=== PATIENT | male | born 1940 | race Two or more races ===

== ENCOUNTER 2023-06-25 13:58 | Inpatient (IN) | payer MEDICARE ==
[~2023-06-25] VITALS: Ht 175.3 cm; Wt 70.5 kg
[2023-06-25 15:51] LABS: BASOPHILS % (AUTO) 0.8 % (0.0-2.0); EOSINOPHILS % (AUTO) 1.8 % (1.0-6.0); HEMATOCRIT 30.2 % (41-53); HEMOGLOBIN 10.4 g/dL (13.5-17.5); LYMPHOCYTES # (AUTO) 1.3 K/uL (1.0-4.8); LYMPHOCYTES % (AUTO) 16.5 % (22.0-44.0); MEAN CORPUSCULAR HEMOGLOBIN 31.7 pg (26.0-34.0); MEAN CORPUSCULAR HGB CONC 34.4 G/dL (31.0-37.0); MEAN CORPUSCULAR VOLUME 92 fL (80-100); MONOCYTES # (AUTO) 0.6 K/uL (0.1-1.0); MONOCYTES % (AUTO) 8.2 % (2.0-9.0); NEUTROPHILS # (AUTO) 5.7 K/uL (1.8-7.7); NEUTROPHILS % (AUTO) 72.7 % (40.0-70.0); PLATELET COUNT (AUTO) 321 K/uL (150-450); RED BLOOD CELL COUNT(AUTO) 3.28 MIL/uL (4.50-5.90); RED CELL DISTRIBUTION WIDTH 14.9 % (11.5-14.5); WHITE BLOOD COUNT (AUTO) 7.9 K/uL (4.5-11.0)
[2023-06-25] MEDS ORDERED: INSULIN LISPRO 100 UNITS/ML SQ PRN (16:00)
[2023-06-25] MEDS ORDERED: DEXTROSE 50%-WATER 25 GM/50 ML SYRINGE IVP PRN (16:00)
[2023-06-25] MEDS ORDERED: BISACODYL 10 MG RECTAL RECTAL SUPPOSITORY PR PRN (16:00)
[2023-06-25] MEDS ORDERED: ACETAMINOPHEN 325 MG TABLET PO PRN (16:00)
[2023-06-25] MEDS ORDERED: ONDANSETRON HCL 4 MG/2 ML VIAL IVP PRN (16:00)
[2023-06-25 16:01] LABS: CALCIUM, TOTAL 9.1 mg/dL (8.8-10.5); CREATININE 1.41 mg/dL (0.60-1.30); POTASSIUM 4.8 mmol/L (3.5-5.1); PROTHROMBIN TIME 10.5 SEC (9.4-11.6)
[2023-06-25 16:07] LABS: ALBUMIN 2.9 g/dL (3.4-5.0); BILIRUBIN,TOTAL 0.2 mg/dL (0.1-1.0); TOTAL PROTEIN, SERUM 7.3 g/dL (6.4-8.2)
[2023-06-25] MEDS ORDERED: GADOTERATE MEGLUMINE 10 MMOL/20 ML VIAL IVP ONE (16:10)
[2023-06-25] MEDS: MORPHINE SULFATE 2 MG/ML SYRINGE IVP PRN (16:15)
[2023-06-25 17:10] LABS: COVID AG,FIA SOURCE NASAL SWAB
[2023-06-25 17:52] LABS: SARS-COV2 (COVID) ANTIGEN,FIA Negative (Negative)
[2023-06-25 18:12] VITALS: BP 120/58; PULSE 58; RESP 20; TEMP 97.6
[2023-06-25 18:17] LABS: GLUCOMETER DEV NAME(LOC) 6N.2B; GLUCOSE,POINT OF CARE 129 MG/DL (70-110)
[2023-06-25] MEDS ORDERED: INFLUENZA VIRUS VACCINE QVS 2023-24 (6MO+)/PF 60 MCG/0.5 ML SYRINGE IM. ONE (20:00)
[2023-06-25] MEDS: OxyCODONE HCL/ACETAMINOPHEN 5-325 MG TABLET PO PRN (20:13)
[2023-06-25] MEDS: DOCUSATE SODIUM 100 MG CAPSULE PO SCH (20:15)
[2023-06-25 20:49] VITALS: BP 105/47; PULSE 54; RESP 18; TEMP 97.4
[2023-06-25 20:51] LABS: GLUCOMETER DEV NAME(LOC) 6N.1B; GLUCOSE,POINT OF CARE 133 MG/DL (70-110)
[2023-06-25] MEDS ORDERED: SODIUM CHLORIDE 0.9% 1,000 ML IV ONE (21:45)
[2023-06-26] MEDS: OxyCODONE HCL/ACETAMINOPHEN 5-325 MG TABLET PO PRN (04:24)
[2023-06-26 05:15] VITALS: BP 102/44; PULSE 57; RESP 18; TEMP 97.8
[2023-06-26] MEDS: FAMOTIDINE 20 MG TABLET PO SCH (08:09)
[2023-06-26] MEDS: DOCUSATE SODIUM 100 MG CAPSULE PO SCH ×2 (08:09→21:26)
[2023-06-26 09:31] VITALS: BP 117/59; PULSE 54; RESP 20; TEMP 98.4
[2023-06-26] MEDS ORDERED: SODIUM CL IRRIG SOLN BAG 3,000 ML IRRIG ONE (12:26)
[2023-06-26] MEDS ORDERED: VANCOMYCIN HCL 1 GM/VIAL ONE (12:26)
[2023-06-26 12:27] LABS: GLUCOMETER DEV NAME(LOC) 6N.2B; GLUCOSE,POINT OF CARE 169 MG/DL (70-110)
[2023-06-26 12:27] LABS: GLUCOMETER DEV NAME(LOC) 6S.2; GLUCOSE,POINT OF CARE 78 MG/DL (70-110)
[2023-06-26] MEDS ORDERED: LIDOCAINE/PF 1% 30 ML VIAL ONE (12:27)
[2023-06-26] MEDS ORDERED: BUPIVACAINE HCL/PF 0.25% 30 ML VIAL ONE (12:27)
[2023-06-26] MEDS ORDERED: CeFAZolin 2 GM/DEXTROSE 50 ML IV ONE (12:39)
[2023-06-26] MEDS ORDERED: SODIUM CHLORIDE 0.9% 1,000 ML IV ONE (13:00)
[2023-06-26] MEDS ORDERED: HYDROmorphone HCL 2 MG/ML SYRINGE IVP PRN (13:45)
[2023-06-26] MEDS ORDERED: MEPERIDINE-PF 25 MG/ML VIAL IVP PRN (13:45)
[2023-06-26] MEDS ORDERED: FentaNYL CITRATE PF 100 MCG/2 ML VIAL IVP PRN (13:45)
[2023-06-26] MEDS: MORPHINE SULFATE 2 MG/ML SYRINGE IVP PRN (16:14)
[2023-06-26 16:29] VITALS: BP 125/59; PULSE 69; RESP 19; TEMP 97.5
[2023-06-26 18:41] VITALS: BP 112/46; PULSE 65; RESP 18; TEMP 98.1
[2023-06-26] MEDS: HYDROmorphone HCL 2 MG/ML SYRINGE IVP PRN (19:58)
[2023-06-26] MEDS: ACETAMINOPHEN 1000 MG/ISO-OSM 100 ML IV SCH (20:05)
[2023-06-26 20:26] LABS: GLUCOMETER DEV NAME(LOC) 6N.2B; GLUCOSE,POINT OF CARE 120 MG/DL (70-110)
[2023-06-26 20:34] VITALS: BP 133/78; PULSE 71; RESP 20; TEMP 98.5
[2023-06-26] MEDS: CYCLOBENZAPRINE HCL 10 MG TABLET PO SCH (21:30)
[2023-06-26 22:55] LABS: GLUCOMETER DEV NAME(LOC) 6S.2; GLUCOSE,POINT OF CARE 110 MG/DL (70-110)
[2023-06-27] MEDS: HYDROmorphone HCL 2 MG/ML SYRINGE IVP PRN ×2 (01:28→16:39)
[2023-06-27] MEDS: ACETAMINOPHEN 1000 MG/ISO-OSM 100 ML IV SCH ×2 (02:25→08:21)
[2023-06-27] MEDS ORDERED: PROPOFOL 1% ISO-OSM 1000 MG/100 ML BOTTLE IV ONE (02:51)
[2023-06-27] MEDS ORDERED: FentaNYL CITRATE PF 100 MCG/2 ML VIAL IVP ONE (02:51)
[2023-06-27 04:03] VITALS: BP 121/65; PULSE 66; RESP 18; TEMP 97.8
[2023-06-27] MEDS: OxyCODONE HCL 5 MG IR TABLET PO PRN (06:53)
[2023-06-27 07:31] LABS: GLUCOMETER DEV NAME(LOC) 6S.2; GLUCOSE,POINT OF CARE 80 MG/DL (70-110)
[2023-06-27] MEDS: CYCLOBENZAPRINE HCL 10 MG TABLET PO SCH ×3 (08:21→23:40)
[2023-06-27] MEDS: DOCUSATE SODIUM 100 MG CAPSULE PO SCH ×2 (08:21→21:45)
[2023-06-27] MEDS: FAMOTIDINE 20 MG TABLET PO SCH (08:21)
[2023-06-27] MEDS: OXYGEN THERAPY IH SCH ×2 (08:28→20:00)
[2023-06-27 08:48] VITALS: BP 137/72; PULSE 85; RESP 18; TEMP 98.2
[2023-06-27] MEDS ORDERED: VANCOMYCIN 1GM/WATER(PEG/NADA) 200 ML IV ONE (14:00)
[2023-06-27 16:42] VITALS: BP 119/53; PULSE 80; RESP 18; TEMP 98.3
[2023-06-27 20:28] VITALS: BP 129/62; PULSE 86; RESP 18; TEMP 99.1
[2023-06-28] MEDS: HYDROmorphone HCL 2 MG/ML SYRINGE IVP PRN (00:32)
[2023-06-28 03:27] LABS: GLUCOMETER DEV NAME(LOC) 4E.2; GLUCOSE,POINT OF CARE 125 MG/DL (70-110)
[2023-06-28 03:27] LABS: GLUCOMETER DEV NAME(LOC) 6S.2; GLUCOSE,POINT OF CARE 108 MG/DL (70-110)
[2023-06-28 03:27] LABS: GLUCOMETER DEV NAME(LOC) 6S.2; GLUCOSE,POINT OF CARE 111 MG/DL (70-110)
[2023-06-28 05:11] VITALS: BP 121/66; PULSE 82; RESP 18; TEMP 98.8
[2023-06-28 07:15] LABS: ANION GAP 4 mmol/L (8-16); CALCIUM, TOTAL 8.7 mg/dL (8.8-10.5); CARBON DIOXIDE 29 mmol/L (22-29); CHLORIDE 102 mmol/L (98-107); CREATININE 0.88 mg/dL (0.60-1.30); GLOMERULAR FILTR. RATE CALC > 60 mL/min (>60); GLUCOSE,RANDOM 98 mg/dL (70-110); POTASSIUM 5.4 mmol/L (3.5-5.1); SODIUM SERUM 135 mmol/L (136-145); UREA NITROGEN, BLOOD 9 mg/dL (7-18)
[2023-06-28] MEDS ORDERED: VANCOMYCIN 1GM/WATER(PEG/NADA) 200 ML IV SCH (08:00)
[2023-06-28] MEDS: OXYGEN THERAPY IH SCH ×2 (08:00→20:00)
[2023-06-28] MEDS: DOCUSATE SODIUM 100 MG CAPSULE PO SCH ×2 (08:24→22:58)
[2023-06-28] MEDS: VANCOMYCIN HCL 500 MG in DEXTROSE 5%-WATER 100 ML IV SCH ×2 (08:25→22:58)
[2023-06-28] MEDS: CYCLOBENZAPRINE HCL 10 MG TABLET PO SCH ×3 (08:25→22:58)
[2023-06-28 09:10] LABS: BASOPHILS % (AUTO) 0.8 % (0.0-2.0); EOSINOPHILS % (AUTO) 2.1 % (1.0-6.0); HEMOGLOBIN 9.2 g/dL (13.5-17.5); LYMPHOCYTES # (AUTO) 1.4 K/uL (1.0-4.8); MEAN CORPUSCULAR HEMOGLOBIN 31.8 pg (26.0-34.0); MEAN CORPUSCULAR HGB CONC 34.2 G/dL (31.0-37.0); MEAN CORPUSCULAR VOLUME 93 fL (80-100); MONOCYTES # (AUTO) 0.8 K/uL (0.1-1.0); MONOCYTES % (AUTO) 10.2 % (2.0-9.0); NEUTROPHILS # (AUTO) 5.3 K/uL (1.8-7.7); NEUTROPHILS % (AUTO) 68.9 % (40.0-70.0); PLATELET COUNT (AUTO) 251 K/uL (150-450); RED CELL DISTRIBUTION WIDTH 14.7 % (11.5-14.5); WHITE BLOOD COUNT (AUTO) 7.6 K/uL (4.5-11.0)
[2023-06-28 09:23] VITALS: BP 120/76; PULSE 79; RESP 18; TEMP 98.1
[2023-06-28] MEDS: FAMOTIDINE 20 MG TABLET PO SCH (10:22)
[2023-06-28 15:53] VITALS: BP 114/54; PULSE 70; RESP 18; TEMP 97.9
[2023-06-28 17:01] LABS: GLUCOMETER DEV NAME(LOC) 4E.2; GLUCOSE,POINT OF CARE 83 MG/DL (70-110)
[2023-06-28 18:46] LABS: GLUCOMETER DEV NAME(LOC) 6N.2B; GLUCOSE,POINT OF CARE 115 MG/DL (70-110)
[2023-06-28 18:46] LABS: GLUCOMETER DEV NAME(LOC) 6N.2B; GLUCOSE,POINT OF CARE 98 MG/DL (70-110)
[2023-06-28 20:27] VITALS: BP 127/71; PULSE 75; RESP 18; TEMP 98.1
[2023-06-29] MEDS: OxyCODONE HCL 5 MG IR TABLET PO PRN ×3 (02:13→20:50)
[2023-06-29 02:41] LABS: GLUCOMETER DEV NAME(LOC) 4E.2; GLUCOSE,POINT OF CARE 99 MG/DL (70-110)
[2023-06-29 04:45] VITALS: BP 125/73; PULSE 77; RESP 20; TEMP 98.1
[2023-06-29 07:13] LABS: ANION GAP 5 mmol/L (8-16); CALCIUM, TOTAL 8.8 mg/dL (8.8-10.5); CARBON DIOXIDE 29 mmol/L (22-29); CHLORIDE 103 mmol/L (98-107); CREATININE 0.87 mg/dL (0.60-1.30); GLOMERULAR FILTR. RATE CALC > 60 mL/min (>60); GLUCOSE,RANDOM 91 mg/dL (70-110); POTASSIUM 4.8 mmol/L (3.5-5.1); SODIUM SERUM 137 mmol/L (136-145); UREA NITROGEN, BLOOD 10 mg/dL (7-18); VANCOMYCIN,RANDOM 9.7 mcg/mL (25.0-50.0)
[2023-06-29 07:26] LABS: GLUCOMETER DEV NAME(LOC) 4E.2; GLUCOSE,POINT OF CARE 78 MG/DL (70-110)
[2023-06-29] MEDS: DOCUSATE SODIUM 100 MG CAPSULE PO SCH ×2 (07:49→20:40)
[2023-06-29] MEDS: FAMOTIDINE 20 MG TABLET PO SCH (07:49)
[2023-06-29] MEDS: OXYGEN THERAPY IH SCH ×2 (08:00→20:00)
[2023-06-29] MEDS ORDERED: VANCOMYCIN 1GM/WATER(PEG/NADA) 200 ML IV ONE (08:00)
[2023-06-29 08:08] VITALS: BP 133/65; PULSE 77; RESP 18; TEMP 97.3
[2023-06-29] MEDS: CYCLOBENZAPRINE HCL 10 MG TABLET PO SCH ×3 (08:12→23:15)
[2023-06-29] MEDS ORDERED: AMOX1TAB15 PO (10:57)
[2023-06-29 15:42] VITALS: BP 133/65; PULSE 77; RESP 18; TEMP 97.3
[2023-06-29 18:02] LABS: GLUCOMETER DEV NAME(LOC) 6N.2B; GLUCOSE,POINT OF CARE 122 MG/DL (70-110)
[2023-06-29 18:02] LABS: GLUCOMETER DEV NAME(LOC) 4E.2; GLUCOSE,POINT OF CARE 101 MG/DL (70-110)
[2023-06-29 19:58] VITALS: BP 128/67; PULSE 90; RESP 18; TEMP 98.5
[2023-06-29] MEDS: VANCOMYCIN HCL 750 MG in DEXTROSE 5%-WATER 250 ML IV SCH (20:43)
[2023-06-30 00:06] LABS: GLUCOMETER DEV NAME(LOC) 4E.2; GLUCOSE,POINT OF CARE 135 MG/DL (70-110)
[2023-06-30 04:34] VITALS: BP 139/74; PULSE 93; RESP 18; TEMP 98.4
[2023-06-30 07:31] LABS: GLUCOMETER DEV NAME(LOC) 6N.2B; GLUCOSE,POINT OF CARE 85 MG/DL (70-110)
[2023-06-30 07:36] LABS: ANION GAP 6 mmol/L (8-16); CARBON DIOXIDE 29 mmol/L (22-29); CHLORIDE 100 mmol/L (98-107); CREATININE 0.95 mg/dL (0.60-1.30); GLOMERULAR FILTR. RATE CALC > 60 mL/min (>60); GLUCOSE,RANDOM 104 mg/dL (70-110); SODIUM SERUM 135 mmol/L (136-145); UREA NITROGEN, BLOOD 12 mg/dL (7-18)
[2023-06-30] MEDS: OXYGEN THERAPY IH SCH ×2 (08:00→20:00)
[2023-06-30 08:10] VITALS: BP 134/70; PULSE 88; RESP 19; TEMP 98.5
[2023-06-30] MEDS: VANCOMYCIN HCL 750 MG in DEXTROSE 5%-WATER 250 ML IV SCH ×2 (09:08→20:05)
[2023-06-30] MEDS: DOCUSATE SODIUM 100 MG CAPSULE PO SCH ×2 (09:08→20:05)
[2023-06-30] MEDS: CYCLOBENZAPRINE HCL 10 MG TABLET PO SCH ×3 (09:08→23:26)
[2023-06-30] MEDS: FAMOTIDINE 20 MG TABLET PO SCH (09:08)
[2023-06-30 11:20] VITALS: BP 133/68; PULSE 87; RESP 17; TEMP 98.5
[2023-06-30 11:56] LABS: GLUCOMETER DEV NAME(LOC) 6S.2; GLUCOSE,POINT OF CARE 93 MG/DL (70-110)
[2023-06-30 15:49] VITALS: BP 128/66; PULSE 82; RESP 19; TEMP 98.6
[2023-06-30] MEDS ORDERED: SODIUM CHLORIDE 0.9% 1,000 ML IV ONE (16:00)
[2023-06-30 18:12] LABS: GLUCOMETER DEV NAME(LOC) 4E.2; GLUCOSE,POINT OF CARE 122 MG/DL (70-110)
[2023-06-30 18:23] LABS: EOSINOPHILS % (AUTO) 1.8 % (1.0-6.0); HEMATOCRIT 26.5 % (41-53); LYMPHOCYTES # (AUTO) 0.9 K/uL (1.0-4.8); LYMPHOCYTES % (AUTO) 13.7 % (22.0-44.0); MEAN CORPUSCULAR HEMOGLOBIN 31.3 pg (26.0-34.0); MEAN CORPUSCULAR HGB CONC 33.8 G/dL (31.0-37.0); MEAN CORPUSCULAR VOLUME 93 fL (80-100); MONOCYTES # (AUTO) 0.6 K/uL (0.1-1.0); MONOCYTES % (AUTO) 9.5 % (2.0-9.0); NEUTROPHILS # (AUTO) 4.9 K/uL (1.8-7.7); PLATELET COUNT (AUTO) 296 K/uL (150-450); RED BLOOD CELL COUNT(AUTO) 2.87 MIL/uL (4.50-5.90); WHITE BLOOD COUNT (AUTO) 6.6 K/uL (4.5-11.0)
[2023-06-30 19:54] VITALS: BP 136/73; PULSE 86; RESP 20; TEMP 98.1
[2023-06-30 22:16] LABS: GLUCOMETER DEV NAME(LOC) 6S.2; GLUCOSE,POINT OF CARE 130 MG/DL (70-110)
[2023-07-01 03:45] VITALS: BP 156/68; PULSE 114; RESP 18; TEMP 97.9
[2023-07-01] MEDS ORDERED: HALOPERIDOL LACTATE 5 MG/ML VIAL IM ONE (04:00)
[2023-07-01 04:45] VITALS: BP 156/68; RESP 18; O2SAT 98
[2023-07-01 06:41] LABS: GLUCOMETER DEV NAME(LOC) 4E.2; GLUCOSE,POINT OF CARE 97 MG/DL (70-110)
[2023-07-01] MEDS ORDERED: LORazepam 2 MG/ML VIAL IVP ONE (07:45)
[2023-07-01] MEDS ORDERED: LORazepam 2 MG/ML VIAL ONE (07:48)
[2023-07-01] MEDS: CYCLOBENZAPRINE HCL 10 MG TABLET PO SCH ×2 (08:07→16:33)
[2023-07-01] MEDS: VANCOMYCIN HCL 750 MG in DEXTROSE 5%-WATER 250 ML IV SCH ×2 (08:07→20:31)
[2023-07-01] MEDS: DOCUSATE SODIUM 100 MG CAPSULE PO SCH ×2 (08:08→20:31)
[2023-07-01] MEDS: FAMOTIDINE 20 MG TABLET PO SCH (09:00)
[2023-07-01 09:36] VITALS: BP 123/70; PULSE 90; RESP 19; TEMP 98.1
[2023-07-01 12:54] LABS: ANION GAP 3 mmol/L (8-16); CALCIUM, TOTAL 8.6 mg/dL (8.8-10.5); CARBON DIOXIDE 30 mmol/L (22-29); CHLORIDE 103 mmol/L (98-107); CREATININE 0.91 mg/dL (0.60-1.30); GLOMERULAR FILTR. RATE CALC > 60 mL/min (>60); GLUCOSE,RANDOM 136 mg/dL (70-110); POTASSIUM 4.3 mmol/L (3.5-5.1); SODIUM SERUM 136 mmol/L (136-145); UREA NITROGEN, BLOOD 10 mg/dL (7-18); VANCOMYCIN,RANDOM 34.4 mcg/mL (25.0-50.0)
[2023-07-01 19:18] VITALS: BP 113/66; PULSE 74; RESP 18; TEMP 98.2
[2023-07-01 19:30] VITALS: BP 113/66; PULSE 74; RESP 18; TEMP 98.2; O2SAT 99
[2023-07-01] MEDS: OXYGEN THERAPY IH SCH (20:00)
[2023-07-01 21:26] LABS: GLUCOMETER DEV NAME(LOC) 6S.2; GLUCOSE,POINT OF CARE 100 MG/DL (70-110)
[2023-07-01 21:26] LABS: GLUCOMETER DEV NAME(LOC) 6S.2; GLUCOSE,POINT OF CARE 124 MG/DL (70-110)
[2023-07-01 23:06] LABS: GLUCOMETER DEV NAME(LOC) 6N.2B; GLUCOSE,POINT OF CARE 116 MG/DL (70-110)
[2023-07-02 04:56] VITALS: BP 125/75; PULSE 89; RESP 18; TEMP 98.4
[2023-07-02 07:16] LABS: GLUCOMETER DEV NAME(LOC) 6S.2; GLUCOSE,POINT OF CARE 58 MG/DL (70-110)
[2023-07-02 07:16] LABS: GLUCOMETER DEV NAME(LOC) 6S.2; GLUCOSE,POINT OF CARE 86 MG/DL (70-110)
[2023-07-02 07:30] LABS: ANION GAP 6 mmol/L (8-16); CALCIUM, TOTAL 8.9 mg/dL (8.8-10.5); CARBON DIOXIDE 27 mmol/L (22-29); CHLORIDE 103 mmol/L (98-107); CREATININE 0.91 mg/dL (0.60-1.30); GLOMERULAR FILTR. RATE CALC > 60 mL/min (>60); GLUCOSE,RANDOM 91 mg/dL (70-110); POTASSIUM 5.4 mmol/L (3.5-5.1); SODIUM SERUM 136 mmol/L (136-145); UREA NITROGEN, BLOOD 11 mg/dL (7-18)
[2023-07-02] MEDS: OXYGEN THERAPY IH SCH (08:00)
[2023-07-02 08:02] VITALS: BP 118/68; PULSE 84; RESP 19; TEMP 98.5
[2023-07-02] MEDS: VANCOMYCIN HCL 750 MG in DEXTROSE 5%-WATER 250 ML IV SCH (08:05)
[2023-07-02] MEDS: FAMOTIDINE 20 MG TABLET PO SCH (08:20)
[2023-07-02] MEDS: DOCUSATE SODIUM 100 MG CAPSULE PO SCH (08:20)
[2023-07-02] MEDS: CYCLOBENZAPRINE HCL 10 MG TABLET PO SCH ×2 (08:21)
== END 2023-07-02 12:00 | disposition home health service (06) | DRG 617 ==
LOC: EMS 14:00 → 6N 17:12 → 6S 17:51
PROVIDERS: ADMIT Internal Medicine; ATTEND Internal Medicine
PROC: 0JBR0ZZ Excision of Left Foot Subcutaneous Tissue and Fascia, Open Approach (ICD-10-PCS; 2023-06-26)
PROC: 0Y6U0Z0 Detachment at Left 3rd Toe, Complete, Open Approach (ICD-10-PCS; principal; 2023-06-26 13:30)
DX: E11.621 Type 2 diabetes mellitus with foot ulcer (principal); F23 Brief psychotic disorder; L97.529 Non-pressure chronic ulcer of other part of left foot with unspecified severity; E11.40 Type 2 diabetes mellitus with diabetic neuropathy, unspecified; E11.51 Type 2 diabetes mellitus with diabetic peripheral angiopathy without gangrene; T50.905A Adverse effect of unspecified drugs, medicaments and biological substances, initial encounter; Y92.238 Other place in hospital as the place of occurrence of the external cause; L08.9 Local infection of the skin and subcutaneous tissue, unspecified; I10 Essential (primary) hypertension; M85.88 Other specified disorders of bone density and structure, other site; R41.0 Disorientation, unspecified; Z83.3 Family history of diabetes mellitus; Z79.4 Long term (current) use of insulin; Z86.718 Personal history of other venous thrombosis and embolism
CPT/HCPCS: 73521; 73720; 80048; 80053; 80202; 82962; 85025; 85610; 85651; 85730; 86140; 87040; 88307; 90686; 93005; 97110; 97116; 97162; 97530; 99285; G0238; J0131; J0690; J1170; J1630; J2060; J2270; J2405; J2704; J3010; J3370; J3490; J7030; J7060; Q9967

== ENCOUNTER 2024-06-07 11:36 | Inpatient (IN) | payer MEDICARE, MEDICAID ==
[~2024-06-07] VITALS: Ht 175.3 cm; Wt 80.0 kg
[~2024-06-07 11:36] MED LIST: AMOX1TAB15 PO
[2024-06-07] MEDS ORDERED: METO50 PO (11:58)
[2024-06-07] MEDS ORDERED: ATOR40TA28 PO (11:58)
[2024-06-07] MEDS ORDERED: GABA-1216 PO (11:58)
[2024-06-07] MEDS ORDERED: BUME1TAB50 PO (11:58)
[2024-06-07] MEDS ORDERED: SPIR-37 PO (11:58)
[2024-06-07] MEDS ORDERED: LISI-892 PO (11:58)
[2024-06-07] MEDS ORDERED: APIX5TAB PO (11:58)
[2024-06-07] MEDS ORDERED: AMIO200T68 PO (11:58)
[2024-06-07] MEDS: DOXYCYCLINE HYCLATE 100 MG TABLET PO ONE (13:40)
[2024-06-07] MEDS ORDERED: DOXY-354 PO (15:27)
[2024-06-07] MEDS ORDERED: 0.9% SODIUM CHLORIDE 10 ML SYRINGE IVP PRN (16:45)
[2024-06-07 17:11] LABS: BASOPHILS % (AUTO) 0.3 % (0.0-2.0); EOSINOPHILS % (AUTO) 0.1 % (1.0-6.0); HEMOGLOBIN 9.4 g/dL (13.5-17.5); LYMPHOCYTES % (AUTO) 6.4 % (22.0-44.0); MEAN CORPUSCULAR HEMOGLOBIN 30.4 pg (26.0-34.0); MEAN CORPUSCULAR HGB CONC 32.5 G/dL (31.0-37.0); MEAN CORPUSCULAR VOLUME 94 fL (80-100); MONOCYTES # (AUTO) 1.3 K/uL (0.1-1.0); MONOCYTES % (AUTO) 8.3 % (2.0-9.0); NEUTROPHILS # (AUTO) 12.9 K/uL (1.8-7.7); NEUTROPHILS % (AUTO) 84.9 % (40.0-70.0); PLATELET COUNT (AUTO) 247 K/uL (150-450); RED BLOOD CELL COUNT(AUTO) 3.09 MIL/uL (4.50-5.90); RED CELL DISTRIBUTION WIDTH 14.9 % (11.5-14.5); WHITE BLOOD COUNT (AUTO) 15.2 K/uL (4.5-11.0)
[2024-06-07] MEDS: SODIUM CHLORIDE 0.9% 1,450 ML IV ONE (17:16)
[2024-06-07] MEDS: VANCOMYCIN 1GM/WATER(PEG/NADA) 200 ML IV ONE (17:17)
[2024-06-07 17:18] LABS: APPEARANCE,URINE CLEAR (CLEAR); BILIRUBIN,URINE NEGATIVE (NEGATIVE); COLOR,URINE LIGHT YELLOW (YELLOW); GLUCOSE, URINE (UA) NEGATIVE (NEGATIVE); KETONES,URINE NEGATIVE (NEGATIVE); LEUKOCYTE ESTERASE ,URINE NEGATIVE (NEGATIVE); NITRATE,URINE NEGATIVE (NEGATIVE); OCCULT BLOOD,URINE NEGATIVE (NEGATIVE); PH,URINE 5.5 (5.0-8.0); PROTEIN,URINE TRACE mg/dL (NEGATIVE); SPECIFIC GRAVITIY, URINE 1.016 (1.003-1.030); UROBILINOGEN,URINE <=1.0 mg/dL (<=1.0)
[2024-06-07 17:20] LABS: PROTHROMBIN TIME 12.2 SEC (9.4-11.6)
[2024-06-07 17:21] LABS: ANION GAP 11 mmol/L (8-16); CARBON DIOXIDE 24 mmol/L (22-29); CHLORIDE 103 mmol/L (98-107); CREATININE 2.04 mg/dL (0.60-1.30); GLOMERULAR FILTR. RATE CALC 31 mL/min (>60); GLUCOSE,RANDOM 130 mg/dL (70-110); POTASSIUM 4.5 mmol/L (3.5-5.1); SODIUM SERUM 138 mmol/L (136-145); UREA NITROGEN, BLOOD 42 mg/dL (7-18)
[2024-06-07 17:26] LABS: ALANINE AMINOTRANSFERASE 24 U/L (12-78); ALBUMIN 3.1 g/dL (3.4-5.0); ALKALINE PHOSPHATASE 77 U/L (46-116); ASPARTATE AMINOTRANSFERASE 25 U/L (15-37); BILIRUBIN,TOTAL 0.8 mg/dL (0.1-1.0); TOTAL PROTEIN, SERUM 7.3 g/dL (6.4-8.2)
[2024-06-07 17:28] LABS: LACTIC ACID 1.7 mmol/L (0.4-2.0)
[2024-06-07] MEDS ORDERED: IPRATROPIUM BROMIDE 0.5 MG/2.5 ML NEB SOLUTION NEB PRN (20:00)
[2024-06-07] MEDS ORDERED: ZOLPIDEM TARTRATE 5 MG TABLET PO PRN (20:00)
[2024-06-07] MEDS ORDERED: BISACODYL 10 MG RECTAL RECTAL SUPPOSITORY PR PRN (20:00)
[2024-06-07] MEDS ORDERED: ALBUTEROL SULFATE 2.5 MG/0.5 ML NEB SOLUTION NEB PRN (20:00)
[2024-06-07] MEDS ORDERED: ONDANSETRON HCL 4 MG/2 ML VIAL IVP PRN (20:00)
[2024-06-07] MEDS: AMIODARONE HCL 200 MG TABLET PO SCH (21:18)
[2024-06-07] MEDS: PIPERACILLIN/TAZO 3.375 GM/D5W 50 ML IV ONE (21:18)
[2024-06-07] MEDS: APIXABAN 5 MG TABLET PO SCH (21:18)
[2024-06-07] MEDS: GABAPENTIN 100 MG CAPSULE PO SCH (21:18)
[2024-06-07 23:58] VITALS: BP 116/55; PULSE 88; RESP 18; TEMP 101.2; O2SAT 95
[2024-06-08] MEDS ORDERED: HEPARIN SODIUM,PORCINE 5,000 UNITS/ML VIAL SQ SCH
[2024-06-08] MEDS: ACETAMINOPHEN 325 MG TABLET PO PRN (00:33)
[2024-06-08] MEDS ORDERED: HYDROCODONE/ACETAMINOPHEN 5-325 MG TABLET PO PRN (01:00)
[2024-06-08] MEDS ORDERED: MORPHINE SULFATE 2 MG/ML SYRINGE IVP PRN (01:15)
[2024-06-08] MEDS: PIPERACILLIN SODIUM/TAZOBACTAM 2.25 GM in DEXTROSE 5%-WATER 50 ML IV SCH (04:29)
[2024-06-08 05:18] VITALS: BP 105/48; PULSE 71; RESP 18; TEMP 98.2; O2SAT 94
[2024-06-08] MEDS ORDERED: VANCOMYCIN HCL 1 GM VIAL ONE (06:43)
[2024-06-08] MEDS ORDERED: MUPIROCIN CALCIUM 2% 22 GM OINTMENT ONE (06:43)
[2024-06-08] MEDS ORDERED: RINGERS SOLUTION,LACTATED 1,000 ML IV ONE (06:43)
[2024-06-08] MEDS: ETHYL ALCOHOL 62% ANTISEPTIC NASAL SANITIZER 0.6 ML AMPUL NASAL ONE (06:54)
[2024-06-08] MEDS: SODIUM CHLORIDE 0.9% 1,000 ML IV ONE (06:56)
[2024-06-08 06:59] LABS: BASOPHILS % (AUTO) 0.5 % (0.0-2.0); EOSINOPHILS % (AUTO) 0 % (1.0-6.0); HEMATOCRIT 27.4 % (41-53); HEMOGLOBIN 9.2 g/dL (13.5-17.5); LYMPHOCYTES % (AUTO) 7.3 % (22.0-44.0); MEAN CORPUSCULAR HEMOGLOBIN 31.7 pg (26.0-34.0); MEAN CORPUSCULAR HGB CONC 33.6 G/dL (31.0-37.0); MEAN CORPUSCULAR VOLUME 94 fL (80-100); MONOCYTES % (AUTO) 7.5 % (2.0-9.0); NEUTROPHILS % (AUTO) 84.7 % (40.0-70.0); PLATELET COUNT (AUTO) 188 K/uL (150-450); RED BLOOD CELL COUNT(AUTO) 2.91 MIL/uL (4.50-5.90); RED CELL DISTRIBUTION WIDTH 15.4 % (11.5-14.5)
[2024-06-08 07:07] LABS: CALCIUM, TOTAL 8.6 mg/dL (8.8-10.5); CREATININE 1.91 mg/dL (0.60-1.30); POTASSIUM 4.4 mmol/L (3.5-5.1); VANCOMYCIN,RANDOM 7.9 mcg/mL (25.0-50.0)
[2024-06-08] MEDS ORDERED: SODIUM CL IRRIG SOLN BAG 0 ML IRRIG ONE (07:11)
[2024-06-08] MEDS: LIDOCAINE/PF 1% 30 ML VIAL ONE (07:40)
[2024-06-08] MEDS: BUPIVACAINE HCL/PF 0.25% 30 ML VIAL ONE (07:40)
[2024-06-08] MEDS ORDERED: VANCOMYCIN 750 MG/WATER(PEG) 150 ML IV SCH (08:00)
[2024-06-08] MEDS: VANCOMYCIN 750 MG/WATER(PEG) 150 ML IV SCH (08:28)
[2024-06-08] MEDS ORDERED: FentaNYL CITRATE PF 100 MCG/2 ML VIAL IVP PRN (08:30)
[2024-06-08] MEDS ORDERED: MEPERIDINE-PF 25 MG/ML VIAL IVP PRN (08:30)
[2024-06-08 09:31] VITALS: BP 136/81; PULSE 81; RESP 20; TEMP 98.4; O2SAT 96
[2024-06-08] MEDS: METOPROLOL TARTRATE 50 MG TABLET PO SCH (13:11)
[2024-06-08] MEDS: SPIRONOLACTONE 25 MG TABLET PO SCH (13:12)
[2024-06-08] MEDS: BUMETANIDE 1 MG TABLET PO SCH (13:12)
[2024-06-08] MEDS: ATORVASTATIN CALCIUM 40 MG TABLET PO SCH (13:13)
[2024-06-08] MEDS: LISINOPRIL 5 MG TABLET PO SCH (13:13)
[2024-06-08] MEDS: PANTOPRAZOLE SODIUM 40 MG DR TABLET PO SCH (13:17)
[2024-06-08] MEDS: HYDROCODONE/ACETAMINOPHEN 5-325 MG TABLET PO PRN (17:15)
[2024-06-08 19:51] VITALS: BP 100/55; PULSE 64; RESP 18; TEMP 98; O2SAT 96
[2024-06-09 04:46] VITALS: BP 122/66; PULSE 74; RESP 18; TEMP 98.2; O2SAT 97
[2024-06-09 07:32] LABS: CALCIUM, TOTAL 8.1 mg/dL (8.8-10.5); CREATININE 1.91 mg/dL (0.60-1.30); POTASSIUM 3.9 mmol/L (3.5-5.1)
[2024-06-09] MEDS: VANCOMYCIN 750 MG/WATER(PEG) 150 ML IV SCH (08:48)
[2024-06-09 08:51] VITALS: BP 135/66; PULSE 68; RESP 17; TEMP 97.8; O2SAT 97
[2024-06-09 17:21] VITALS: BP 123/66; PULSE 67; RESP 18; TEMP 98.2; O2SAT 98
[2024-06-09 20:00] VITALS: BP 123/64; PULSE 78; RESP 18; TEMP 99.6; O2SAT 94
[2024-06-10 04:04] VITALS: BP 127/59; PULSE 67; RESP 18; TEMP 98; O2SAT 96
[2024-06-10 07:46] LABS: CALCIUM, TOTAL 8.4 mg/dL (8.8-10.5); CREATININE 1.59 mg/dL (0.60-1.30); POTASSIUM 3.8 mmol/L (3.5-5.1); VANCOMYCIN,RANDOM 10.9 mcg/mL (25.0-50.0)
[2024-06-10 08:07] VITALS: BP 117/65; PULSE 69; RESP 18; TEMP 98.1; O2SAT 96
[2024-06-10 11:46] LABS: GLUCOMETER DEV NAME(LOC) 6S.1D; GLUCOSE,POINT OF CARE 120 MG/DL (70-110)
[2024-06-10 11:46] LABS: GLUCOMETER DEV NAME(LOC) 6S.1D; GLUCOSE,POINT OF CARE 116 MG/DL (70-110)
[2024-06-10 11:46] LABS: GLUCOMETER DEV NAME(LOC) 6S.1D; GLUCOSE,POINT OF CARE 110 MG/DL (70-110)
[2024-06-10] MEDS ORDERED: PROPOFOL 1% ISO-OSM 1000 MG/100 ML BOTTLE IV ONE (12:00)
[2024-06-10] MEDS ORDERED: LIDOCAINE/PF 2% 5 ML SYRINGE IVP ONE (12:00)
[2024-06-10] MEDS ORDERED: PROPOFOL 1% 20 ML VIAL IVP ONE (12:00)
[2024-06-10 14:36] LABS: GLUCOMETER DEV NAME(LOC) 4E.2; GLUCOSE,POINT OF CARE 133 MG/DL (70-110)
[2024-06-10 14:36] LABS: GLUCOMETER DEV NAME(LOC) 4E.2; GLUCOSE,POINT OF CARE 144 MG/DL (70-110)
[2024-06-10 16:12] VITALS: BP 104/53; PULSE 62; RESP 18; TEMP 98; O2SAT 96
[2024-06-10 19:09] VITALS: BP 106/70; PULSE 59; RESP 18; TEMP 98; O2SAT 100
[2024-06-10] MEDS: OXYGEN THERAPY IH SCH (20:00)
[2024-06-10 22:26] LABS: GLUCOMETER DEV NAME(LOC) 4E.2; GLUCOSE,POINT OF CARE 118 MG/DL (70-110)
[2024-06-10 22:26] LABS: GLUCOMETER DEV NAME(LOC) 4E.2; GLUCOSE,POINT OF CARE 138 MG/DL (70-110)
[2024-06-11 03:48] VITALS: BP 133/72; PULSE 71; RESP 19; TEMP 98.6; O2SAT 97
[2024-06-11 05:16] LABS: GLUCOMETER DEV NAME(LOC) 4E.2; GLUCOSE,POINT OF CARE 95 MG/DL (70-110)
[2024-06-11 07:57] LABS: CALCIUM, TOTAL 8.5 mg/dL (8.8-10.5); CREATININE 1.52 mg/dL (0.60-1.30); POTASSIUM 4.4 mmol/L (3.5-5.1)
[2024-06-11 08:00] VITALS: BP 109/51; PULSE 69; RESP 18; TEMP 98.6; O2SAT 98
[2024-06-11] MEDS: VANCOMYCIN 1.25 GM/WATER(PEG) 250 ML IV SCH (08:52)
[2024-06-11] MEDS: MORPHINE SULFATE 2 MG/ML SYRINGE IVP PRN (09:36)
[2024-06-11 16:02] VITALS: BP 111/78; PULSE 65; RESP 18; TEMP 98.1; O2SAT 99
[2024-06-11 19:18] VITALS: BP 128/77; PULSE 71; RESP 18; TEMP 98.1; O2SAT 98
[2024-06-11 20:23] LABS: GLUCOMETER DEV NAME(LOC) 4E.2; GLUCOSE,POINT OF CARE 111 MG/DL (70-110)
[2024-06-11 20:23] LABS: GLUCOMETER DEV NAME(LOC) 4E.2; GLUCOSE,POINT OF CARE 127 MG/DL (70-110)
[2024-06-11 20:45] LABS: GLUCOMETER DEV NAME(LOC) 6S.1D; GLUCOSE,POINT OF CARE 134 MG/DL (70-110)
[2024-06-12 05:31] VITALS: BP 122/76; PULSE 110; RESP 18; TEMP 97.9; O2SAT 99
[2024-06-12 06:05] LABS: GLUCOMETER DEV NAME(LOC) 6S.1D; GLUCOSE,POINT OF CARE 128 MG/DL (70-110)
[2024-06-12 07:50] VITALS: BP 147/79; PULSE 88; RESP 18; TEMP 98.2; O2SAT 98
[2024-06-12 08:18] LABS: CALCIUM, TOTAL 9.1 mg/dL (8.8-10.5); CREATININE 1.34 mg/dL (0.60-1.30)
[2024-06-12 10:25] LABS: HEMATOCRIT 27.3 % (41-53); MEAN CORPUSCULAR VOLUME 94 fL (80-100); PLATELET COUNT (AUTO) 243 K/uL (150-450); RED BLOOD CELL COUNT(AUTO) 2.91 MIL/uL (4.50-5.90); RED CELL DISTRIBUTION WIDTH 15.4 % (11.5-14.5); WHITE BLOOD COUNT (AUTO) 10.9 K/uL (4.5-11.0)
[2024-06-12 10:53] LABS: BAND NEUTROPHILS % (MANUAL) 4 % (0-5); EOSINOPHILS % (MANUAL) 1 % (1-6); LYMPHOCYTES % (MANUAL) 10 % (22-44); MONOCYTES % (MANUAL) 4 % (2-9); SEGMENTED NEUTROPHILS % 81 % (40-70); TOTAL CELLS COUNTED 100
[2024-06-12 15:55] VITALS: BP 134/70; PULSE 68; RESP 18; TEMP 98.2; O2SAT 97
[2024-06-12] MEDS: *CLINICAL-CEFEPIME DOSING CLINICAL ONE (16:04)
[2024-06-12] MEDS: SODIUM CHLORIDE 0.9% 1,000 ML IV SCH (18:42)
[2024-06-12] MEDS: CEFEPIME HCL 1 GM in DEXTROSE 5%-WATER 50 ML IV SCH (19:11)
[2024-06-12 20:01] LABS: GLUCOMETER DEV NAME(LOC) 6S.1D; GLUCOSE,POINT OF CARE 121 MG/DL (70-110)
[2024-06-12 20:01] LABS: GLUCOMETER DEV NAME(LOC) 6S.1D; GLUCOSE,POINT OF CARE 130 MG/DL (70-110)
[2024-06-12 20:05] VITALS: BP 138/66; PULSE 65; RESP 20; TEMP 97.8; O2SAT 99
[2024-06-13] VITALS (14 sets, daily range): BP systolic 128–155; BP diastolic 58–83; PULSE 54–82; RESP 18–20; TEMP 97.6–98.6; O2SAT 98–99
[2024-06-13 03:16] LABS: GLUCOMETER DEV NAME(LOC) 4E.2; GLUCOSE,POINT OF CARE 106 MG/DL (70-110)
[2024-06-13] MEDS ORDERED: IOHEXOL 350 MG/ML 150 ML VIAL ONE (07:25)
[2024-06-13] MEDS ORDERED: SODIUM CHLORIDE 0.9% 100 ML ONE (07:25)
[2024-06-13 07:54] LABS: MEAN CORPUSCULAR HEMOGLOBIN 31.2 pg (26.0-34.0); MEAN CORPUSCULAR HGB CONC 33.3 G/dL (31.0-37.0); MEAN CORPUSCULAR VOLUME 94 fL (80-100); PLATELET COUNT (AUTO) 284 K/uL (150-450); RED BLOOD CELL COUNT(AUTO) 2.22 MIL/uL (4.50-5.90); RED CELL DISTRIBUTION WIDTH 15.3 % (11.5-14.5); WHITE BLOOD COUNT (AUTO) 9.6 K/uL (4.5-11.0)
[2024-06-13 08:09] LABS: CALCIUM, TOTAL 8.8 mg/dL (8.8-10.5); CREATININE 1.26 mg/dL (0.60-1.30); POTASSIUM 3.7 mmol/L (3.5-5.1)
[2024-06-13 08:50] LABS: HEMOGLOBIN 6.9 g/dL (13.5-17.5)
[2024-06-13 08:51] LABS: HEMATOCRIT 20.7 % (41-53)
[2024-06-13 08:59] LABS: BAND NEUTROPHILS % (MANUAL) 6 % (0-5); EOSINOPHILS % (MANUAL) 1 % (1-6); LYMPHOCYTES % (MANUAL) 13 % (22-44); METAMYELOCYTES % 1 % (0-0); MONOCYTES % (MANUAL) 8 % (2-9); MYELOCYTES % 1 % (0-0); SEGMENTED NEUTROPHILS % 70 % (40-70); TOTAL CELLS COUNTED 100
[2024-06-13] MEDS ORDERED: SODIUM CHLORIDE 0.9% 500 ML IV ONE (11:13)
[2024-06-13] MEDS: CEFEPIME HCL 2 GM in DEXTROSE 5%-WATER 50 ML IV SCH (16:23)
[2024-06-13 17:21] LABS: HEMOGLOBIN 10.5 g/dL (13.5-17.5)
[2024-06-13 19:46] LABS: GLUCOMETER DEV NAME(LOC) 4E.2; GLUCOSE,POINT OF CARE 106 MG/DL (70-110)
[2024-06-14 00:01] LABS: GLUCOMETER DEV NAME(LOC) 4E.2; GLUCOSE,POINT OF CARE 142 MG/DL (70-110)
[2024-06-14 03:08] VITALS: BP 147/75; PULSE 65; RESP 20; TEMP 98.1; O2SAT 100
[2024-06-14 07:20] LABS: GLUCOMETER DEV NAME(LOC) 4E.2; GLUCOSE,POINT OF CARE 91 MG/DL (70-110)
[2024-06-14 07:30] LABS: HEMATOCRIT 29.2 % (41-53); HEMOGLOBIN 9.9 g/dL (13.5-17.5); MEAN CORPUSCULAR HEMOGLOBIN 31.6 pg (26.0-34.0); MEAN CORPUSCULAR HGB CONC 34.1 G/dL (31.0-37.0); MEAN CORPUSCULAR VOLUME 93 fL (80-100); PLATELET COUNT (AUTO) 285 K/uL (150-450); RED BLOOD CELL COUNT(AUTO) 3.15 MIL/uL (4.50-5.90); RED CELL DISTRIBUTION WIDTH 15.5 % (11.5-14.5); WHITE BLOOD COUNT (AUTO) 9.6 K/uL (4.5-11.0)
[2024-06-14 07:43] LABS: CALCIUM, TOTAL 8.3 mg/dL (8.8-10.5); CREATININE 1.21 mg/dL (0.60-1.30); POTASSIUM 3.6 mmol/L (3.5-5.1)
[2024-06-14 08:24] VITALS: BP 149/68; PULSE 63; RESP 19; TEMP 98.1; O2SAT 95
[2024-06-14 08:43] LABS: BAND NEUTROPHILS % (MANUAL) 7 % (0-5); EOSINOPHILS % (MANUAL) 2 % (1-6); LYMPHOCYTES % (MANUAL) 12 % (22-44); METAMYELOCYTES % 1 % (0-0); MONOCYTES % (MANUAL) 8 % (2-9); SEGMENTED NEUTROPHILS % 70 % (40-70); TOTAL CELLS COUNTED 100
[2024-06-14 11:36] LABS: GLUCOMETER DEV NAME(LOC) 4E.2; GLUCOSE,POINT OF CARE 97 MG/DL (70-110)
[2024-06-14 12:51] LABS: GLUCOMETER DEV NAME(LOC) 6S.1D; GLUCOSE,POINT OF CARE 98 MG/DL (70-110)
[2024-06-14 15:26] VITALS: BP 109/65; PULSE 55; RESP 19; TEMP 98.2; O2SAT 99
[2024-06-14] MEDS: MAGNESIUM HYDROXIDE SUSPENSION 30 ML UDCUP PO PRN (15:49)
[2024-06-14 19:42] VITALS: BP 129/73; PULSE 66; RESP 18; TEMP 98.8; O2SAT 100
[2024-06-14 22:05] LABS: GLUCOMETER DEV NAME(LOC) 4E.2; GLUCOSE,POINT OF CARE 105 MG/DL (70-110)
[2024-06-15 04:31] VITALS: BP 167/71; PULSE 73; RESP 20; TEMP 98.7; O2SAT 98
[2024-06-15 06:00] LABS: GLUCOMETER DEV NAME(LOC) 6S.1D; GLUCOSE,POINT OF CARE 134 MG/DL (70-110)
[2024-06-15 06:01] LABS: GLUCOMETER DEV NAME(LOC) 6S.1D; GLUCOSE,POINT OF CARE 111 MG/DL (70-110)
[2024-06-15 08:10] VITALS: BP 128/65; PULSE 63; RESP 18; TEMP 98.8; O2SAT 99
[2024-06-15 13:08] LABS: ANION GAP 11 mmol/L (8-16); CALCIUM, TOTAL 8.8 mg/dL (8.8-10.5); CARBON DIOXIDE 24 mmol/L (22-29); CHLORIDE 105 mmol/L (98-107); CREATININE 1.11 mg/dL (0.60-1.30); GLOMERULAR FILTR. RATE CALC > 60 mL/min (>60); GLUCOSE,RANDOM 103 mg/dL (70-110); POTASSIUM 3.7 mmol/L (3.5-5.1); SODIUM SERUM 140 mmol/L (136-145); UREA NITROGEN, BLOOD 16 mg/dL (7-18)
[2024-06-15 13:16] LABS: GLUCOMETER DEV NAME(LOC) 6S.1D; GLUCOSE,POINT OF CARE 126 MG/DL (70-110)
[2024-06-15 15:52] VITALS: BP 113/69; PULSE 83; RESP 18; TEMP 99.4; O2SAT 97
[2024-06-15 16:01] LABS: GLUCOMETER DEV NAME(LOC) 6S.1D; GLUCOSE,POINT OF CARE 99 MG/DL (70-110)
[2024-06-15 20:14] VITALS: BP 126/62; PULSE 88; RESP 20; TEMP 98.2; O2SAT 99
[2024-06-15 20:26] LABS: GLUCOMETER DEV NAME(LOC) 6S.1D; GLUCOSE,POINT OF CARE 120 MG/DL (70-110)
[2024-06-16 00:52] LABS: GLUCOMETER DEV NAME(LOC) 4E.2; GLUCOSE,POINT OF CARE 131 MG/DL (70-110)
[2024-06-16 04:13] VITALS: BP 134/62; PULSE 58; RESP 18; TEMP 98.8; O2SAT 99
[2024-06-16 08:25] VITALS: BP 130/74; PULSE 59; RESP 18; TEMP 98.2; O2SAT 98
[2024-06-16] MEDS: HYDROCODONE/ACETAMINOPHEN 10-325 MG TABLET PO PRN (10:18)
[2024-06-16] MEDS ORDERED: ASCO500 PO (13:32)
[2024-06-16] MEDS ORDERED: PANT-31 PO (14:57)
[2024-06-16] MEDS ORDERED: ACET-2247 PO (14:58)
[2024-06-16] MEDS ORDERED: ALBU2.5V39 NEB (14:59)
[2024-06-16] MEDS ORDERED: BISA10SU11 PR (15:08)
[2024-06-16] MEDS ORDERED: HYDR-4072 PO (15:12)
[2024-06-16] MEDS ORDERED: MAGN-169 PO (15:12)
[2024-06-16] MEDS ORDERED: IPRA0.2S49 NEB (15:12)
[2024-06-16] MEDS ORDERED: ZOLP-280 PO (15:13)
[2024-06-16 15:35] LABS: GLUCOMETER DEV NAME(LOC) 4E.2; GLUCOSE,POINT OF CARE 82 MG/DL (70-110)
[2024-06-16 17:36] VITALS: BP 128/57; PULSE 53; RESP 18; TEMP 98.2; O2SAT 100
[2024-06-16 19:08] VITALS: BP 133/63; PULSE 62; RESP 18; TEMP 98.1; O2SAT 99
[2024-06-17] MEDS ORDERED: ASCORBIC ACID 500 MG TABLET PO SCH (09:00)
== END 2024-06-16 20:58 | DRG 629 ==
LOC: EMS 11:48 → EDH 06-08 00:22 → 4E 06-08 00:27
PROVIDERS: ADMIT Hospitalist; ATTEND Hospitalist
PROC: 0QBP0ZZ Excision of Left Metatarsal, Open Approach (ICD-10-PCS; principal; 2024-06-08 07:30)
PROC: 30233N1 Transfusion of Nonautologous Red Blood Cells into Peripheral Vein, Percutaneous Approach (ICD-10-PCS; 2024-06-13)
PROC: 05HB33Z Insertion of Infusion Device into Right Basilic Vein, Percutaneous Approach (ICD-10-PCS; 2024-06-14)
PROC: B54MZZA Ultrasonography of Right Upper Extremity Veins, Guidance (ICD-10-PCS; 2024-06-14)
DX: E11.69 Type 2 diabetes mellitus with other specified complication (principal); E44.0 Moderate protein-calorie malnutrition; L03.116 Cellulitis of left lower limb; I13.0 Hypertensive heart and chronic kidney disease with heart failure and stage 1 through stage 4 chronic kidney disease, or unspecified chronic kidney disease; M86.8X7 Other osteomyelitis, ankle and foot; E11.51 Type 2 diabetes mellitus with diabetic peripheral angiopathy without gangrene; E11.621 Type 2 diabetes mellitus with foot ulcer; L97.529 Non-pressure chronic ulcer of other part of left foot with unspecified severity; I50.9 Heart failure, unspecified; N18.9 Chronic kidney disease, unspecified; E11.22 Type 2 diabetes mellitus with diabetic chronic kidney disease; I70.222 Atherosclerosis of native arteries of extremities with rest pain, left leg; Z68.26 Body mass index [BMI] 26.0-26.9, adult; G89.29 Other chronic pain; D64.9 Anemia, unspecified; M77.30 Calcaneal spur, unspecified foot; E78.00 Pure hypercholesterolemia, unspecified; Z83.3 Family history of diabetes mellitus; Z88.5 Allergy status to narcotic agent
CPT/HCPCS: 36245; 36569; 71045; 72191; 73706; 73718; 74175; 76937; 80048; 80053; 80202; 81003; 82271; 82962; 83605; 85014; 85018; 85025; 85610; 86850; 86900; 86901; 86923; 87040; 87070; 87081; 87186; 87205; 88305; 93005; 93306; 93925; 97110; 97116; 97162; 97167; 97530; 97535; 99285; G0378; J0692; J2270; J2543; J2704; J3370; J3490; J7030; J7040; J7050; J7060; J7120; P9016; 36415-L1; 36415-TC; Z7610